=== PATIENT | female | born 1985 ===

== ENCOUNTER 2023-02-27 12:05 | Outpatient (CLI) | payer OTHER | END 2023-02-27 13:39 | disposition home or self-care (01) | LOC: RAD 12:05 | PROVIDERS: ATTEND General Practice | DX: J20.9 Acute bronchitis, unspecified (principal); R05.9 Cough, unspecified ==

== ENCOUNTER 2023-04-03 08:51 | Outpatient (CLI) | payer OTHER | END 2023-04-03 08:52 | disposition home or self-care (01) | LOC: RAD 08:51 | DX: R51.9 Headache, unspecified (principal) ==